=== PATIENT | male | born 1945 | race Caucasian/White ===

== ENCOUNTER 2017-01-16 21:24 | Inpatient (IN) | payer MEDICARE, OTHER ==
[~2017-01-16] VITALS: Ht 175.3 cm; Wt 73.8 kg
[2017-01-16 22:30] LABS: BLOOD UREA NITROGEN 18 mg/dL (7-18)
[2017-01-16 22:37] LABS: IS PT STATUS REG ER OR PRE ER? YES
[2017-01-17] MEDS ORDERED: OMNIPAQUE 350 MG/ML, 100ML BOTTLE ONE (00:36)
[2017-01-17] MEDS ORDERED: DOCU250C2 PO (00:48)
[2017-01-17] MEDS ORDERED: TRAZ50TA18 PO (00:48)
[2017-01-17] MEDS ORDERED: FURO40TA6 PO (00:48)
[2017-01-17] MEDS ORDERED: CETI5TAB3 PO (00:48)
[2017-01-17] MEDS ORDERED: DOXE10CA PO (00:48)
[2017-01-17] MEDS ORDERED: CYAN100028 PO (00:48)
[2017-01-17] MEDS ORDERED: VENL75TA PO (00:48)
[2017-01-17] MEDS ORDERED: GABA-826 PO (00:48)
[2017-01-17] MEDS ORDERED: PANT40TA5 PO (00:48)
[2017-01-17] MEDS ORDERED: FERR325T20 PO (00:48)
[2017-01-17] MEDS ORDERED: ONDANSETRON 2MG/ML, 2ML IVPush PRN (01:30)
[2017-01-17 02:49] VITALS: BP 141/88
[2017-01-17] MEDS ORDERED: DOXEPIN 3 MG MC SCH (03:00)
[2017-01-17 03:08] LABS: IS PT STATUS REG ER OR PRE ER? NO
[2017-01-17 03:17] LABS: HIV 1&2 ANTIBODY SCREEN Nonreactive (Nonreactive); HIV-1 p24 ANTIGEN Nonreactive (Nonreactive)
[2017-01-17 07:38] VITALS: BP 141/89
[2017-01-17 08:10] LABS: PATH.CAST-FLAG NOT PRESENT; SPERM-FLAG NOT PRESENT; SRC-FLAG NOT PRESENT; XTAL-FLAG NOT PRESENT; YLC-FLAG NOT PRESENT
[2017-01-17 09:09] LABS: IS PT STATUS REG ER OR PRE ER? NO
[2017-01-17] MEDS: CYANOCOBALAMIN 1,000 MCG TABLET PO SCH (09:37)
[2017-01-17] MEDS: NICOTINE 7 MG/24 HR PATCH.TD24 TD SCH (09:37)
[2017-01-17] MEDS: MAGNESIUM OXIDE 400 MG TABLET PO SCH (09:37)
[2017-01-17] MEDS: FERROUS SULFATE 325 MG TABLET PO SCH ×2 (09:37→20:54)
[2017-01-17] MEDS: VENLAFAXINE 75MG TABLET PO SCH (09:37)
[2017-01-17] MEDS: MULTIVITAMINS/MINERALS TABLET PO SCH ×2 (09:37→20:54)
[2017-01-17 09:40] LABS: OCCBLD OBC PASS
[2017-01-17 11:13] LABS: CYTOLOGY BODY FLUID RECD INTO PATHOLOGY; CYTOLOGY BODY FLUID SOURCE PLEURAL FLUID
[2017-01-17 14:02] VITALS: BP 142/83
[2017-01-17] MEDS ORDERED: [UNRECOGNIZED DRUG - OTHER] INH SCH (16:00)
[2017-01-17] MEDS: ENOXAPARIN 40 MG/0.4 ML SQ SCH (16:33)
[2017-01-17] MEDS: COMBIVENT HOMEINH SCH ×2 (16:34→20:53)
[2017-01-17 19:57] VITALS: BP 110/69
[2017-01-17] MEDS: TRAZODONE 100MG TABLET PO SCH (20:54)
[2017-01-17] MEDS: DOXEPIN 3 MG HOMEMEDPO SCH (20:54)
[2017-01-17] MEDS: GABAPENTIN 100 MG CAPSULE PO SCH (20:54)
[2017-01-17] MEDS ORDERED: DOXEPIN 10 MG CAPSULE PO SCH (21:00)
[2017-01-18 01:57] VITALS: BP 110/72
[2017-01-18] MEDS: COMBIVENT HOMEINH SCH ×4 (05:45→21:00)
[2017-01-18 05:58] LABS: BLOOD UREA NITROGEN 25 mg/dL (7-18)
[2017-01-18] MEDS: FLUTICASONE/VILANTEROL 200-25MCG/INH INH SCH (09:00)
[2017-01-18] MEDS: NICOTINE 7 MG/24 HR PATCH.TD24 TD SCH (09:01)
[2017-01-18] MEDS: MAGNESIUM OXIDE 400 MG TABLET PO SCH (09:02)
[2017-01-18] MEDS: VENLAFAXINE 75MG TABLET PO SCH (09:02)
[2017-01-18] MEDS: MULTIVITAMINS/MINERALS TABLET PO SCH ×2 (09:02→21:30)
[2017-01-18] MEDS: FERROUS SULFATE 325 MG TABLET PO SCH ×2 (09:02→21:18)
[2017-01-18] MEDS: CYANOCOBALAMIN 1,000 MCG TABLET PO SCH (09:02)
[2017-01-18 09:12] VITALS: BP 133/80
[2017-01-18 14:24] VITALS: BP 103/76
[2017-01-18] MEDS: ENOXAPARIN 40 MG/0.4 ML SQ SCH (16:50)
[2017-01-18] MEDS: LISINOPRIL 5 MG TABLET PO SCH (16:51)
[2017-01-18] MEDS: CARVEDILOL 3.125 MG TABLET PO SCH (17:41)
[2017-01-18 19:13] VITALS: BP 143/78
[2017-01-18] MEDS: DOXEPIN 3 MG HOMEMEDPO SCH (21:00)
[2017-01-18] MEDS: TRAZODONE 100MG TABLET PO SCH (21:18)
[2017-01-18] MEDS: GABAPENTIN 100 MG CAPSULE PO SCH (21:19)
[2017-01-19 01:32] VITALS: BP 128/80
[2017-01-19 04:58] LABS: BLOOD UREA NITROGEN 23 mg/dL (7-18)
[2017-01-19 05:28] VITALS: BP 120/80
[2017-01-19] MEDS: CARVEDILOL 3.125 MG TABLET PO SCH ×2 (05:29→18:08)
[2017-01-19] MEDS: COMBIVENT HOMEINH SCH ×4 (05:30→21:00)
[2017-01-19 08:10] VITALS: BP 141/92
[2017-01-19] MEDS: MAGNESIUM OXIDE 400 MG TABLET PO SCH (08:56)
[2017-01-19] MEDS: VENLAFAXINE 75MG TABLET PO SCH (08:56)
[2017-01-19] MEDS: LISINOPRIL 5 MG TABLET PO SCH ×2 (08:56→21:10)
[2017-01-19] MEDS: MULTIVITAMINS/MINERALS TABLET PO SCH ×2 (08:56→21:09)
[2017-01-19] MEDS: CYANOCOBALAMIN 1,000 MCG TABLET PO SCH (08:56)
[2017-01-19] MEDS: FERROUS SULFATE 325 MG TABLET PO SCH ×2 (08:56→21:09)
[2017-01-19] MEDS: NICOTINE 7 MG/24 HR PATCH.TD24 TD SCH (09:32)
[2017-01-19] MEDS: FLUTICASONE/VILANTEROL 200-25MCG/INH INH SCH (11:42)
[2017-01-19] MEDS: SODIUM CHLORIDE 0.9% 1,000 ML IV SCH ×2 (13:48→23:48)
[2017-01-19 14:47] VITALS: BP 148/81
[2017-01-19] MEDS: ASPIRIN 81 MG TABLET CHEW PO SCH (15:06)
[2017-01-19] MEDS: ENOXAPARIN 40 MG/0.4 ML SQ SCH (15:06)
[2017-01-19] MEDS: DOXEPIN 3 MG HOMEMEDPO SCH (21:00)
[2017-01-19 21:05] VITALS: BP 133/78
[2017-01-19] MEDS: GABAPENTIN 100 MG CAPSULE PO SCH (21:09)
[2017-01-19] MEDS: TRAZODONE 100MG TABLET PO SCH (21:10)
[2017-01-19] MEDS ORDERED: NITROGLYCERIN 0.4 MG/SPRAY SL PRN (22:00)
[2017-01-19] MEDS ORDERED: NITROGLYCERIN 0.4 MG BOTTLE (25 TABS) SL PRN (22:00)
[2017-01-19 22:33] VITALS: BP 123/75
[2017-01-20 03:00] VITALS: BP 103/76
[2017-01-20] MEDS: SODIUM CHLORIDE INHALATION 7%, 4 ML NPPB SCH (05:15)
[2017-01-20] MEDS: CARVEDILOL 3.125 MG TABLET PO SCH ×2 (05:40→17:32)
[2017-01-20] MEDS: ASPIRIN 81 MG TABLET CHEW PO SCH (05:40)
[2017-01-20] MEDS: COMBIVENT HOMEINH SCH ×4 (05:40→20:19)
[2017-01-20 06:08] LABS: BLOOD UREA NITROGEN 25 mg/dL (7-18)
[2017-01-20] MEDS: LISINOPRIL 5 MG TABLET PO SCH ×2 (07:56→20:19)
[2017-01-20] MEDS: VENLAFAXINE 75MG TABLET PO SCH (07:56)
[2017-01-20] MEDS: FERROUS SULFATE 325 MG TABLET PO SCH ×2 (07:56→20:19)
[2017-01-20] MEDS: NICOTINE 7 MG/24 HR PATCH.TD24 TD SCH (07:56)
[2017-01-20] MEDS: FLUTICASONE/VILANTEROL 200-25MCG/INH INH SCH (07:56)
[2017-01-20] MEDS: CYANOCOBALAMIN 1,000 MCG TABLET PO SCH (07:56)
[2017-01-20] MEDS: MULTIVITAMINS/MINERALS TABLET PO SCH ×2 (07:56→20:19)
[2017-01-20] MEDS: MAGNESIUM OXIDE 400 MG TABLET PO SCH (07:56)
[2017-01-20] MEDS: SODIUM CHLORIDE 0.9% 1,000 ML IV SCH ×2 (08:01→19:48)
[2017-01-20 09:26] VITALS: BP 138/79
[2017-01-20] MEDS: SPIRONOLACTONE 25 MG TABLET PO SCH (10:49)
[2017-01-20 13:25] VITALS: BP 128/82
[2017-01-20] MEDS: ENOXAPARIN 40 MG/0.4 ML SQ SCH (15:34)
[2017-01-20 20:13] VITALS: BP 142/82
[2017-01-20] MEDS: DOXEPIN 3 MG HOMEMEDPO SCH (20:19)
[2017-01-20] MEDS: TRAZODONE 100MG TABLET PO SCH (20:19)
[2017-01-20] MEDS: GABAPENTIN 100 MG CAPSULE PO SCH (20:19)
[2017-01-21 01:40] VITALS: BP 127/80
[2017-01-21] MEDS: COMBIVENT HOMEINH SCH ×4 (06:00→21:00)
[2017-01-21 06:07] VITALS: BP 158/82
[2017-01-21] MEDS: CARVEDILOL 3.125 MG TABLET PO SCH ×2 (06:08→17:42)
[2017-01-21] MEDS: ASPIRIN 81 MG TABLET CHEW PO SCH (06:08)
[2017-01-21 06:24] LABS: BLOOD UREA NITROGEN 25 mg/dL (7-18)
[2017-01-21] MEDS: SODIUM CHLORIDE INHALATION 7%, 4 ML NPPB SCH (09:00)
[2017-01-21 09:46] VITALS: BP 128/68
[2017-01-21] MEDS: NICOTINE 7 MG/24 HR PATCH.TD24 TD SCH (09:50)
[2017-01-21] MEDS: CYANOCOBALAMIN 1,000 MCG TABLET PO SCH (09:50)
[2017-01-21] MEDS: FLUTICASONE/VILANTEROL 200-25MCG/INH INH SCH (09:50)
[2017-01-21] MEDS: MULTIVITAMINS/MINERALS TABLET PO SCH ×2 (09:50→21:50)
[2017-01-21] MEDS: MAGNESIUM OXIDE 400 MG TABLET PO SCH (09:51)
[2017-01-21] MEDS: FERROUS SULFATE 325 MG TABLET PO SCH ×2 (09:51→21:50)
[2017-01-21] MEDS: VENLAFAXINE 75MG TABLET PO SCH (09:51)
[2017-01-21] MEDS: LISINOPRIL 5 MG TABLET PO SCH ×2 (09:51→21:50)
[2017-01-21] MEDS: SPIRONOLACTONE 25 MG TABLET PO SCH (09:51)
[2017-01-21] MEDS: ENOXAPARIN 40 MG/0.4 ML SQ SCH (15:37)
[2017-01-21] MEDS: DOXEPIN 3 MG HOMEMEDPO SCH (21:00)
[2017-01-21] MEDS ORDERED: ACETAMINOPHEN 325 MG TABLET PO PRN (21:30)
[2017-01-21] MEDS ORDERED: CALCIUM CARBONATE 500 MG TAB.CHEW PO PRN (21:30)
[2017-01-21 21:47] VITALS: BP 137/81
[2017-01-21] MEDS: TRAZODONE 100MG TABLET PO SCH (21:50)
[2017-01-21] MEDS: GABAPENTIN 100 MG CAPSULE PO SCH (21:50)
[2017-01-22 01:47] VITALS: BP 134/80
[2017-01-22] MEDS: COMBIVENT HOMEINH SCH ×4 (05:14→23:59)
[2017-01-22] MEDS: ASPIRIN 81 MG TABLET CHEW PO SCH (05:15)
[2017-01-22] MEDS: CARVEDILOL 3.125 MG TABLET PO SCH (05:15)
[2017-01-22 05:36] LABS: BLOOD UREA NITROGEN 26 mg/dL (7-18)
[2017-01-22] MEDS ORDERED: SODIUM CHLORIDE 0.9% 1,000 ML IV SCH (06:00)
[2017-01-22] MEDS: SODIUM CHLORIDE INHALATION 7%, 4 ML NPPB SCH (09:00)
[2017-01-22 09:41] VITALS: BP 133/86
[2017-01-22] MEDS: FERROUS SULFATE 325 MG TABLET PO SCH ×2 (09:43→21:11)
[2017-01-22] MEDS: FLUTICASONE/VILANTEROL 200-25MCG/INH INH SCH (09:43)
[2017-01-22] MEDS: LISINOPRIL 5 MG TABLET PO SCH ×2 (09:43→21:12)
[2017-01-22] MEDS: VENLAFAXINE 75MG TABLET PO SCH (09:43)
[2017-01-22] MEDS: SPIRONOLACTONE 25 MG TABLET PO SCH (09:43)
[2017-01-22] MEDS: MAGNESIUM OXIDE 400 MG TABLET PO SCH (09:43)
[2017-01-22] MEDS: MULTIVITAMINS/MINERALS TABLET PO SCH ×2 (09:43→21:11)
[2017-01-22] MEDS: CYANOCOBALAMIN 1,000 MCG TABLET PO SCH (09:43)
[2017-01-22] MEDS: NICOTINE 7 MG/24 HR PATCH.TD24 TD SCH (09:43)
[2017-01-22] MEDS ORDERED: BIVALIRUDIN 250 MG ONE (13:58)
[2017-01-22] MEDS ORDERED: MIDAZOLAM 1 MG/ML, 5ML ONE (13:58)
[2017-01-22] MEDS ORDERED: HEPARIN 1,000 UNITS/ML, 10ML ONE (13:58)
[2017-01-22] MEDS ORDERED: TICAGRELOR 90 MG TABLET ONE (13:58)
[2017-01-22] MEDS ORDERED: VERAPAMIL 2.5 MG/ML, 2ML ONE (13:58)
[2017-01-22] MEDS ORDERED: FENTANYL PF 100 MCG/2ML ONE (13:58)
[2017-01-22] MEDS ORDERED: LIDOCAINE 2%, 20ML ONE (13:58)
[2017-01-22] MEDS ORDERED: ADENOSINE 90 MG/30 ML ONE (14:22)
[2017-01-22 15:08] VITALS: BP 102/67
[2017-01-22] MEDS: ENOXAPARIN 40 MG/0.4 ML SQ SCH (16:00)
[2017-01-22 19:10] VITALS: BP 90/55
[2017-01-22 19:48] VITALS: BP 91/68
[2017-01-22 21:00] VITALS: BP_SYST 113; BP_SYST 147; BP_DIAS 76; BP_DIAS 85
[2017-01-22] MEDS: DOXEPIN 3 MG HOMEMEDPO SCH (21:00)
[2017-01-22] MEDS: CARVEDILOL 6.25 MG TABLET PO SCH (21:11)
[2017-01-22] MEDS: TRAZODONE 100MG TABLET PO SCH (21:11)
[2017-01-22] MEDS: GABAPENTIN 100 MG CAPSULE PO SCH (21:12)
[2017-01-23] VITALS (7 sets, daily range): BP systolic 89–146; BP diastolic 50–83
[2017-01-23 05:30] LABS: BLOOD UREA NITROGEN 27 mg/dL (7-18)
[2017-01-23] MEDS: COMBIVENT HOMEINH SCH ×3 (06:00→18:17)
[2017-01-23] MEDS: CARVEDILOL 6.25 MG TABLET PO SCH ×2 (06:29→18:00)
[2017-01-23] MEDS: ASPIRIN 81 MG TABLET CHEW PO SCH (06:30)
[2017-01-23] MEDS: NICOTINE 7 MG/24 HR PATCH.TD24 TD SCH (08:06)
[2017-01-23] MEDS: LORazepam 1MG TABLET PO PRN (08:06)
[2017-01-23] MEDS: SPIRONOLACTONE 25 MG TABLET PO SCH (08:06)
[2017-01-23] MEDS: FLUTICASONE/VILANTEROL 200-25MCG/INH INH SCH (08:07)
[2017-01-23] MEDS: FERROUS SULFATE 325 MG TABLET PO SCH ×2 (08:07→20:31)
[2017-01-23] MEDS: MAGNESIUM OXIDE 400 MG TABLET PO SCH (08:07)
[2017-01-23] MEDS: MULTIVITAMINS/MINERALS TABLET PO SCH ×2 (08:07→20:31)
[2017-01-23] MEDS: VENLAFAXINE 75MG TABLET PO SCH (08:07)
[2017-01-23] MEDS: LISINOPRIL 5 MG TABLET PO SCH ×2 (08:07→20:32)
[2017-01-23] MEDS: CYANOCOBALAMIN 1,000 MCG TABLET PO SCH (08:07)
[2017-01-23] MEDS: ISONIAZID 300 MG TABLET PO SCH (08:13)
[2017-01-23] MEDS ORDERED: SODIUM POLYSTYRENE SULFONATE ORAL SUSP PO ONE (08:30)
[2017-01-23] MEDS: PYRIDOXINE 50MG TABLET PO SCH (12:17)
[2017-01-23] MEDS ORDERED: MAGN400T26 PO (16:43)
[2017-01-23] MEDS ORDERED: ISON300T4 PO (16:43)
[2017-01-23] MEDS ORDERED: FLUT1BLS INH (16:43)
[2017-01-23] MEDS ORDERED: PYRI50TA5 PO (16:43)
[2017-01-23] MEDS ORDERED: ASPI-515 PO (16:43)
[2017-01-23] MEDS ORDERED: NICO1PAT10 TD (16:43)
[2017-01-23] MEDS ORDERED: CARV6.2512 PO (16:43)
[2017-01-23] MEDS ORDERED: ATOR20TA9 PO (16:43)
[2017-01-23 17:04] LABS: BLOOD UREA NITROGEN 26 mg/dL (7-18)
[2017-01-23] MEDS: ENOXAPARIN 40 MG/0.4 ML SQ SCH (18:17)
[2017-01-23] MEDS: GABAPENTIN 100 MG CAPSULE PO SCH (20:31)
[2017-01-23] MEDS: TRAZODONE 100MG TABLET PO SCH (20:31)
[2017-01-23] MEDS: DOXEPIN 3 MG HOMEMEDPO SCH (20:32)
[2017-01-23] MEDS ORDERED: ATORVASTATIN 20 MG TABLET PO SCH (21:00)
[2017-01-24] MEDS: COMBIVENT HOMEINH SCH ×4 (00:30→15:10)
[2017-01-24 01:00] VITALS: BP 138/81
[2017-01-24 06:23] VITALS: BP 93/64
[2017-01-24] MEDS: ASPIRIN 81 MG TABLET CHEW PO SCH (06:24)
[2017-01-24 06:36] LABS: BLOOD UREA NITROGEN 27 mg/dL (7-18)
[2017-01-24 07:41] VITALS: BP 105/79
[2017-01-24] MEDS: LISINOPRIL 5 MG TABLET PO SCH (09:00)
[2017-01-24] MEDS: LORazepam 1MG TABLET PO PRN ×2 (09:21→15:17)
[2017-01-24] MEDS: NICOTINE 7 MG/24 HR PATCH.TD24 TD SCH (09:21)
[2017-01-24] MEDS: CARVEDILOL 6.25 MG TABLET PO SCH (09:21)
[2017-01-24] MEDS: VENLAFAXINE 75MG TABLET PO SCH (09:21)
[2017-01-24] MEDS: MULTIVITAMINS/MINERALS TABLET PO SCH (09:22)
[2017-01-24] MEDS: CYANOCOBALAMIN 1,000 MCG TABLET PO SCH (09:22)
[2017-01-24] MEDS: FERROUS SULFATE 325 MG TABLET PO SCH (09:22)
[2017-01-24] MEDS: PYRIDOXINE 50MG TABLET PO SCH (09:22)
[2017-01-24] MEDS: MAGNESIUM OXIDE 400 MG TABLET PO SCH (09:22)
[2017-01-24] MEDS ORDERED: ATOR20TA9 PO (10:56)
[2017-01-24] MEDS ORDERED: CARV6.2512 PO (10:56)
[2017-01-24] MEDS ORDERED: ASPI-621 PO (10:56)
[2017-01-24] MEDS ORDERED: ISON300T4 PO (10:57)
[2017-01-24] MEDS ORDERED: FLUT1BLS INH (10:59)
[2017-01-24] MEDS ORDERED: PYRI50TA5 PO (11:00)
[2017-01-24] MEDS ORDERED: NICO1PAT10 TD (11:00)
[2017-01-24] MEDS ORDERED: MAGN400T7 PO (11:00)
[2017-01-24 14:58] VITALS: BP 119/78
[2017-01-24] MEDS: FLUTICASONE/VILANTEROL 200-25MCG/INH INH SCH (15:10)
[2017-01-24] MEDS: ISONIAZID 300 MG TABLET PO SCH (15:16)
== END 2017-01-24 15:35 | disposition home or self-care (01) | DRG 286 ==
LOC: ED 23:59 → EDIP 01-17 02:47 → 5SO 01-17 02:54
PROVIDERS: ADMIT Internal Medicine; ATTEND Family Medicine
PROC: 0W993ZZ Drainage of Right Pleural Cavity, Percutaneous Approach (ICD-10-PCS; principal; 2017-01-17)
PROC: 4A023N7 Measurement of Cardiac Sampling and Pressure, Left Heart, Percutaneous Approach (ICD-10-PCS; 2017-01-22)
PROC: B2111ZZ Fluoroscopy of Multiple Coronary Arteries using Low Osmolar Contrast (ICD-10-PCS; 2017-01-22)
PROC: B2151ZZ Fluoroscopy of Left Heart using Low Osmolar Contrast (ICD-10-PCS; 2017-01-22)
PROC: 4A033BC Measurement of Arterial Pressure, Coronary, Percutaneous Approach (ICD-10-PCS; 2017-01-22)
DX: I25.119 Atherosclerotic heart disease of native coronary artery with unspecified angina pectoris (principal); I50.43 Acute on chronic combined systolic (congestive) and diastolic (congestive) heart failure; J90 Pleural effusion, not elsewhere classified; N17.9 Acute kidney failure, unspecified; I42.9 Cardiomyopathy, unspecified; I45.81 Long QT syndrome; D64.9 Anemia, unspecified; E87.5 Hyperkalemia; F32.9 Major depressive disorder, single episode, unspecified; F17.210 Nicotine dependence, cigarettes, uncomplicated; F43.10 Post-traumatic stress disorder, unspecified; I11.0 Hypertensive heart disease with heart failure; I25.10 Atherosclerotic heart disease of native coronary artery without angina pectoris; K21.9 Gastro-esophageal reflux disease without esophagitis; Z78.9 Other specified health status; Z87.01 Personal history of pneumonia (recurrent)
CPT/HCPCS: 32555; 36415; 71010; 71275; 80048; 80076; 81001; 82040; 82150; 82272; 82607; 82728; 82746; 82945; 83540; 83550; 83615; 83735; 83880; 83986; 84100; 84157; 84443; 84484; 85025; 85379; 86480; 86703; 87015; 87070; 87075; 87102; 87116; 87205; 87206; 87899; 88112; 88305; 89051; 93005; 93306; 93458; 93571; 94640; 99156; 99157; 99285; C1894; J0153; J0583; J1644; J1650; J2250; J3010; J3490; Q9967; C1769; C1887; G0435; J7030

== ENCOUNTER 2017-02-23 13:48 | Emergency (ER) | payer OTHER ==
[~2017-02-23] VITALS: Ht 175.3 cm; Wt 71.1 kg
[~2017-02-23 13:48] MED LIST: ASPI-515 PO; ASPI-621 PO; ATOR20TA9 PO; CARV6.2512 PO; CETI5TAB3 PO; CYAN100028 PO; DOCU250C2 PO; DOXE10CA PO; FERR325T20 PO; FLUT1BLS INH; FURO40TA6 PO; GABA-826 PO; ISON300T4 PO; MAGN400T26 PO; MAGN400T7 PO; NICO1PAT10 TD; PANT40TA5 PO; PYRI50TA5 PO; TRAZ50TA18 PO; VENL75TA PO
[2017-02-23] MEDS ORDERED: VENL75TA PO (14:19)
[2017-02-23] MEDS ORDERED: LISI5TAB7 PO (14:19)
[2017-02-23] MEDS ORDERED: KETOROLAC 30 MG/1 ML ONE (15:35)
[2017-02-23 15:38] VITALS: BP 122/84
[2017-02-23] MEDS ORDERED: KETOROLAC 30 MG/1 ML IVPush ONE (16:00)
[2017-02-23] MEDS ORDERED: SODIUM CHLORIDE FLUSH 10ML SYR IVF ONE (16:00)
[2017-02-23 16:19] LABS: BLOOD UREA NITROGEN 22 mg/dL (7-18)
[2017-02-23 16:23] LABS: IS PT STATUS REG ER OR PRE ER? YES
== END 2017-02-23 17:20 | disposition home or self-care (01) ==
LOC: ED 17:15
DX: R07.2 Precordial pain (principal); R06.02 Shortness of breath; I11.0 Hypertensive heart disease with heart failure; I50.9 Heart failure, unspecified; J44.9 Chronic obstructive pulmonary disease, unspecified
CPT/HCPCS: 36415; 71010; 80048; 82040; 83880; 84484; 85025; 93005; 96374; 99285; J1885